=== PATIENT | male | born 1990 | race Caucasian/White ===

== ENCOUNTER 2016-06-19 06:56 | Day surgery (SDC) | payer BC ==
[~2016-06-19] VITALS: Ht 177.8 cm; Wt 88.3 kg
[2016-06-19] MEDS ORDERED: BALSALAZIDE DI750 MG PO (07:10)
[2016-06-19] MEDS ORDERED: DORYX100 PO (07:11)
[2016-06-19] MEDS ORDERED: IMURAN 50MG TAB50 MG PO (07:11)
[2016-06-19] MEDS ORDERED: FERROUS SU325 MG/TAB PO (07:12)
[2016-06-19] MEDS ORDERED: VITAMIN C500 MG PO (07:12)
[2016-06-19 07:31] VITALS: BP 128/76; PULSE 75; TEMP 98.1
[2016-06-19 09:20] VITALS: BP 110/62; PULSE 60; TEMP 97.5
[2016-06-19 09:35] VITALS: BP 112/66; PULSE 73
[2016-06-19 09:50] VITALS: BP 111/77; PULSE 69
[2016-06-19 09:51] VITALS: BP 115/70; PULSE 75
== END 2016-06-19 10:10 | disposition home or self-care (01) ==
LOC: SDCO 06:56
DX: K51.00 Ulcerative (chronic) pancolitis without complications (principal); K64.0 First degree hemorrhoids
CPT/HCPCS: OP; J2704; J7120

== ENCOUNTER → 2017-11-07 | Outpatient (CLI) | payer BC ==
[~2017-11-07] MED LIST: BALSALAZIDE DI750 MG PO; DORYX100 PO; FERROUS SU325 MG/TAB PO; IMURAN 50MG TAB50 MG PO; VITAMIN C500 MG PO
== END ==
LOC: COL.RAD 08:07
DX: R94.6 Abnormal results of thyroid function studies (principal); R76.0 Raised antibody titer
CPT/HCPCS: A9516

== ENCOUNTER 2020-11-02 07:30 | Day surgery (SDC) | payer BC ==
[~2020-11-02] VITALS: Ht 177.8 cm; Wt 82.2 kg
[2020-11-02] MEDS ORDERED: MULTIVITAMIN (08:02)
[2020-11-02 08:28] VITALS: BP 124/84; PULSE 79; TEMP 98.8
[2020-11-02 09:55] VITALS: BP 107/73; PULSE 68; TEMP 98
--- NOTE | 2020-11-02 09:55 | NUR ---
PATIENT TRANSPORTED PER CART FROM GI SUITE TO BAY 2 ACCOMPANIED BY BRITTA RN. PATIENT TALKING WITH STAFF. PATIENT AMBULATED FROM CART TO CHAIR WITH SLOW STEADY GAIT WITH 2 ASSIST. MONITORS APPLIED. VSS. MOTHER IN ROOM. PATIENT DENIES DISCOMFORT AND NAUSEA.
[2020-11-02 10:00] VITALS: BP 114/77; PULSE 75
--- NOTE | 2020-11-02 10:00 | NUR ---
VSS ON ROOM AIR. PATIENT GIVEN PEPSI TO DRINK AT THIS TIME. PATIENT TALKING WITH MOTHER.
[2020-11-02 10:15] VITALS: BP 112/81; PULSE 67
--- NOTE | 2020-11-02 10:15 | NUR ---
VSS ON ROOM AIR. PATIENT DRINKS PEPSI WITHOUT PROBLEMS. PATIENT GIVEN MUFFIN TO EAT.
[2020-11-02 10:30] VITALS: BP 119/84; PULSE 74
[2020-11-02 10:40] VITALS: BP 131/77; PULSE 63
--- NOTE | 2020-11-02 10:40 | NUR ---
VSS ON ROOM AIR. PATIENT EATS AND DRINKS WITHOUT PROBLEMS. DENIES DISCOMFORT AND NAUSEA. 1041 IV SITE DC'D WITH CATHETER TIP INTACT. PRESSURE AND BANDAGE APPLIED.
--- NOTE | 2020-11-02 10:45 | NUR ---
DISCHARGE INSTRUCTIONS GIVEN VERBAL AND DISCHARGE PACKET PROVIDED TO PATIENT AND MOTHER. QUESTIONS ANSWERED AND PATIENT VOICED UNDERSTANDING. PATIENT CHANGES INTO STREET CLOTHES. 1045 PATIENT DISCHARGED PER WHEEL CHAIR ACCOMPANIED BY AMB RN TO PRIVATE VECHILE DRIVEN BY MOTHER.
== END 2020-11-02 11:35 ==
LOC: SDCO 07:30
DX: K51.00 Ulcerative (chronic) pancolitis without complications (principal); R41.89 Other symptoms and signs involving cognitive functions and awareness; K64.0 First degree hemorrhoids; Q14.2 Congenital malformation of optic disc; H54.7 Unspecified visual loss
CPT/HCPCS: J2704; J7120